=== PATIENT | male | born 1970 | race Hispanic/Latino ===

== ENCOUNTER 2017-12-08 22:56 | Emergency (ER) | payer BC ==
[2017-12-08] MEDS ORDERED: Metoclopramide HCl 10 MG/2 ML VIAL ONE (23:35)
[2017-12-08] MEDS ORDERED: diphenhydrAMINE 25 MG CAP ONE (23:35)
[2017-12-08] MEDS ORDERED: diphenhydrAMINE 12.5 MG/5 ML UDCUP ONE (23:36)
[2017-12-08 23:52] LABS: ALT (SGPT) 38 U/L (8-55); AST (SGOT) 29 U/L (5-34); Albumin 4.5 g/dL (3.5-5.0); Alkaline Phosphatase 88 U/L (40-150); Anion Gap 14 mmol/L (10-20); BUN (Urea Nitrogen) 7 mg/dL (8.9-20.6); Bilirubin, Total 0.6 mg/dL (0.2-1.2); CK (CPK) 140 U/L (30-200); Calc. Creatinine Clearance 0 mL/min (70-130); Calcium 9.5 mg/dL (7.8-10.44); Carbon Dioxide 27 mmol/L (22-29); Chloride 95 mmol/L (98-107); Estimated GFR-MDRD Greater than 90; Globulin 3.2 g/dL (2.4-3.5); Glucose 178 mg/dL (70-105); Protein, Total 7.7 g/dL (6.0-8.3); Sodium 133 mmol/L (136-145)
[2017-12-08 23:55] LABS: Potassium 2.7 mmol/L (3.5-5.1)
[2017-12-08 23:56] LABS: CKMB 1.3 ng/mL (0-6.6); Troponin I Less than 0.010 ng/mL (< 0.028)
[2017-12-09] MEDS ORDERED: diphenhydrAMINE 50 MG/ML VIAL ONE (00:04)
--- NOTE | 2017-12-09 00:04 | RAD ---
PORTABLE AP CHEST X-RAY 12/08/17 HISTORY: Chest pain and dizziness that started two hours ago. COMPARISON: 09/18/16. FINDINGS: The cardiac silhouette is magnified by projection. Pulmonary vasculature are within normal limits. Th e lungs are clear. No interval change from prior study. IMPRESSION: No acute cardiopulmonary process. POS: [facility]
[2017-12-09] MEDS ORDERED: Potassium Chloride 20 MEQ TAB ONE (00:05)
[2017-12-09] MEDS ORDERED: Ketorolac Tromethamine 30 MG/ML VIAL ONE (00:05)
--- NOTE | 2017-12-09 00:06 | CT ---
NONCONTRAST CT HEAD 12/08/17 HISTORY: Lightheadedness with onset two weeks ago. Headache. COMPARISON: 10/08/13. FINDINGS: There is no evidence of a hemorrhage, acute infarction, mass effect or midline shift. The ventricular system is normal in size, shape and position. Again noted is peripheral calcification of the right g lobe with increased density of the right globe. Calvarial structures are intact. The visualized paran trace sinuses and mastoid air cells are clear. There has been no interval change from prior exam. IMPRESSION: Stable CT scan of the head without evidence of an acute intracranial abnormality demonstrated. POS: [facility]
[2017-12-09 00:22] LABS: #Basophils 0.1 thou/uL (0.0-0.2); #Eosinphils 0.8 thou/uL (0.0-0.7); #Lymphocytes 3.9 thou/uL (1.20-3.40); #Monocytes 0.9 thou/uL (0.11-0.59); #Neutrophils 4.5 thou/uL (1.40-6.50); %Eosinophils 8.1 % (0.0-10.0); %Lymphocytes 38.3 % (21.0-51.0); %Monocytes 8.9 % (0.0-10.0); %Neutrophils 43.7 % (42.0-75.0); Hemoglobin 15.3 g/dL (14.0-18.0); Mean Corpuscular HGB CONC 36.2 g/dL (32.0-36.0); Mean Corpuscular Hemoglobin 31.4 pg (27.0-31.0); Mean Corpuscular Volume 86.7 fl (80.0-94.0); Mean Platelet Volume 8.6 fL (7.4-10.4); PLT Morphology Comment Appears Adequate; Platelet Count 294 thou/uL (130-400); RBC Distribution Width 11.3 % (11.5-14.5); RBC Morphology Normal; Red Blood Cell (RBC) Count 4.86 mill/uL (4.70-6.10); White Blood Cell (WBC) Count 10.2 thou/uL (4.8-10.8)
[2017-12-09] MEDS ORDERED: HYDROcodone/Acetaminophen 5/325 mg Tablet ONE (00:50)
== END 2017-12-09 00:57 | disposition home or self-care (01) ==
LOC: ERS 22:56
DX: E11.65 Type 2 diabetes mellitus with hyperglycemia (principal); E87.6 Hypokalemia; I11.0 Hypertensive heart disease with heart failure; I50.9 Heart failure, unspecified; K21.9 Gastro-esophageal reflux disease without esophagitis; E78.5 Hyperlipidemia, unspecified; F41.9 Anxiety disorder, unspecified; F32.9 Major depressive disorder, single episode, unspecified; F17.220 Nicotine dependence, chewing tobacco, uncomplicated; Z79.82 Long term (current) use of aspirin; Z79.84 Long term (current) use of oral hypoglycemic drugs; Z79.899 Other long term (current) drug therapy
CPT/HCPCS: 70450; 71045; 80053; 82550; 82553; 84484; 85025; 93005; 96361; 96374; 96375; J1200; J1885; J2765

== ENCOUNTER 2019-01-16 11:14 | Day surgery (SDC) | payer OTHER ==
[2019-01-15 11:03] VITALS: BMI 28.1
[2019-01-16] MEDS ORDERED: Midazolam HCl 2 mg/2 ml Vial ONE (12:39)
[2019-01-16] MEDS ORDERED: Fentanyl 100 MCG/2 ML VIAL ONE ×5 (12:40→15:07)
[2019-01-16 12:56] LABS: Hemoglobin 14.3 g/dL (14.0-18.0); Mean Corpuscular HGB CONC 34.6 g/dL (32.0-36.0); Mean Corpuscular Hemoglobin 31.2 pg (27.0-31.0); Mean Corpuscular Volume 90.1 fL (78.0-98.0); Mean Platelet Volume 6.4 fL (7.4-10.4); Platelet Count 298 thou/uL (130-400); RBC Distribution Width 11.8 % (11.5-14.5); Red Blood Cell (RBC) Count 4.59 mill/uL (4.70-6.10)
[2019-01-16 13:19] LABS: Anion Gap 16 mmol/L (10-20); BUN (Urea Nitrogen) 11 mg/dL (8.9-20.6); Calc. Creatinine Clearance 124 mL/min (70-130); Calcium 9.9 mg/dL (7.8-10.44); Carbon Dioxide 26 mmol/L (22-29); Chloride 96 mmol/L (98-107); Estimated GFR-MDRD Greater than 90; Glucose 146 mg/dL (70-105); Potassium 3.9 mmol/L (3.5-5.1); Sodium 134 mmol/L (136-145)
--- NOTE | 2019-01-16 14:35 | RAD ---
Intraoperative imaging of the left foot 01/16/2019 COMPARISON: 09/10/2018 History: Open reduction and internal fixation of the fifth metatarsal FINDINGS: There is a screw and plate fixation device associated with the fifth metatarsal shaft. Ther e is anatomic alignment at the postoperative site. Old fractures are suspected involving the distal aspect of the third metatarsal shaft and the base of the third proximal phalanx. IMPRESSION: Postoperative changes as described above.
[2019-01-16] MEDS ORDERED: diphenhydrAMINE 50 MG/ML VIAL ONE (14:55)
[2019-01-16] MEDS ORDERED: Ondansetron HCl/PF 4 MG/2 ML Vial IVP PRN (15:05)
[2019-01-16] MEDS ORDERED: Promethazine HCl 25 MG/ML VIAL IM/IV PRN (15:05)
[2019-01-16] MEDS ORDERED: Bupivacaine HCl 0.5%/Epinephrine 1:200,000/PF 30 ml Vial ONE (15:14)
[2019-01-16] MEDS ORDERED: Ketorolac Tromethamine 30 MG/ML VIAL ONE (15:29)
[2019-01-16] MEDS ORDERED: Dexamethasone 20 MG/5 ML VIAL ONE (15:29)
[2019-01-16] MEDS ORDERED: PROPOFOL 200 MG/20 ML VIAL ONE (15:29)
[2019-01-16] MEDS ORDERED: Ondansetron PF 4 MG/2 ML Vial ONE (15:29)
[2019-01-16] MEDS ORDERED: ePHEDrine 50 MG/ML VIAL ONE (15:29)
[2019-01-16] MEDS ORDERED: Lidocaine 1% PF 5 ML VIAL ONE (15:29)
[2019-01-16] MEDS ORDERED: HYDROmorphone 2 MG/ML VIAL ONE (15:38)
[2019-01-16] MEDS ORDERED: HYDROmorphone 2 MG/ML VIAL SLOW IVP PRN (15:52)
[2019-01-16] MEDS ORDERED: HYDROcodone/Acetaminophen 5/325 mg Tablet ONE (16:36)
--- NOTE | 2019-01-16 21:37 | OP ---
DATE OF PROCEDURE: 01/16/2019 OPERATION PERFORMED: Open reduction and internal fixation of left 5th metatarsal fracture. PREOPERATIVE DIAGNOSIS: Left 5th metatarsal fracture. POSTOPERATIVE DIAGNOSIS: Left 5th metatarsal fracture. COMPLICATIONS: None. ESTIMATED BLOOD LOSS: Minimal. IMPLANTS: Synthes mini fragment plate, 2.4 mm five hole. INDICATIONS: Mr. Collins is a 48-year-old male who fractured the 5th metatarsal. He has failed to heal. He was indicated for open reduction and internal fixation to provide rigidity and allow healing. Risks have been reviewed in detail. He elected to proceed with the operation. DESCRIPTION OF PROCEDURE: Mr. Collins was identified in the preoperative holding area. His correct extremity was marked. He was carried to the operating room. He was positioned supine. General anesthesia was induced. A multidisciplinary time-out was performed. The left lower extremity was prepped and draped in sterile fashion. We began the procedure with evaluation of the foot with x-ray. We identified the fracture site. We made an incision over the lateral foot. We dissected down through the subcutaneous tissues to the fascia over the bone. This was opened. We examined the bone. There was a fibrous nonunion after palpating with an osteotome. There was movement at the fracture, although slight. We cleaned the fracture and applied compression. We then applied a Synthes mini fragment plate. Multiple screws were placed. This locked the plate to the bone. We took x-ray images confirming this. There were no complications. We thoroughly irrigated with copious lavage. We then closed in layers and applied a sterile dressing. The patient was taken to the recovery room in good condition without complication. Job ID: [id number]
== END 2019-01-16 17:30 | disposition home or self-care (01) ==
LOC: SDC 11:14
PROVIDERS: ATTEND Orthopaedic Surgery
PROC: 0QSP04Z Reposition Left Metatarsal with Internal Fixation Device, Open Approach (ICD-10-PCS; principal; 2019-01-16)
DX: S92.355K Nondisplaced fracture of fifth metatarsal bone, left foot, subsequent encounter for fracture with nonunion (principal); K21.9 Gastro-esophageal reflux disease without esophagitis; I42.9 Cardiomyopathy, unspecified; I11.9 Hypertensive heart disease without heart failure; F17.290 Nicotine dependence, other tobacco product, uncomplicated; Z79.82 Long term (current) use of aspirin; Z79.84 Long term (current) use of oral hypoglycemic drugs; Z79.899 Other long term (current) drug therapy; X58.XXXD Exposure to other specified factors, subsequent encounter
CPT/HCPCS: 36415; 76000; 80048; 85027; 93005; 93010; C1713; J0670; J0690; J1100; J1170; J1200; J1885; J2001; J2250; J2405; J2704; J3010; J3490

== ENCOUNTER 2019-03-19 13:28 | Outpatient (CLI) | payer BC ==
--- NOTE | 2019-03-20 20:20 | ULT ---
BILATERAL LOWER EXTREMITY ARTERIAL DOPPLER EXAMINATION: 03/19/19 Bilateral lower extremity Doppler examination was performed on 03/19/19. The right femoral, popliteal, posterior tibial and dorsalis pedis waveforms are triphasic with good peak area in the curve. Ankle- brachial index is 1.25. On the left, femoral waveform is triphasic. Popliteal waveform is biphasic. Posterior tibial and dors elena pedis waveforms are triphasic with good peak area in the curve. Ankle-brachial index is 1.21. ASSESSMENT: Right leg arterial Doppler is completely normal with normal MATILDE. Left leg arterial Doppler shows slig ht diminution in the popliteal waveform although this may be erroneous as the posterior tibial and do rsalis pedis waveforms are completely normal. Ankle-brachial index is normal on the left. If there is concern over true peripheral vascular disease, CT angiogram would be the next evaluation step for his left leg.
== END 2019-03-19 13:29 | disposition home or self-care (01) ==
LOC: ULT 13:28
PROVIDERS: ATTEND Family Medicine
DX: M79.661 Pain in right lower leg (principal); M79.662 Pain in left lower leg
CPT/HCPCS: 93922

== ENCOUNTER 2019-04-16 18:17 | Emergency (ER) | payer BC ==
--- NOTE | 2019-04-16 19:02 | RAD ---
RIGHT ANKLE THREE VIEWS: 04/16/19 HISTORY: Injury, right ankle pain and swelling. FINDINGS/IMPRESSION: Soft tissue swelling is present. No acute fracture or dislocation is identified. The ankle mortise is maintained. POS: [facility]
--- NOTE | 2019-04-16 19:04 | RAD ---
RIGHT FOOT THREE VIEWS: 04/16/19 HISTORY: Injury right ankle and right foot pain. FINDINGS/IMPRESSION: No acute fracture or dislocation is identified. POS: [facility]
[2019-04-16] MEDS ORDERED: traMADol HCl 50 MG TAB ONE (19:19)
== END 2019-04-16 19:35 | disposition home or self-care (01) ==
LOC: ERS 18:17
DX: M25.571 Pain in right ankle and joints of right foot (principal); E11.9 Type 2 diabetes mellitus without complications; K21.9 Gastro-esophageal reflux disease without esophagitis; E78.5 Hyperlipidemia, unspecified; I11.0 Hypertensive heart disease with heart failure; I50.9 Heart failure, unspecified; Z79.84 Long term (current) use of oral hypoglycemic drugs; Z79.82 Long term (current) use of aspirin; Z79.899 Other long term (current) drug therapy

== ENCOUNTER 2020-06-28 14:35 | Outpatient (CLI) | payer OTHER ==
--- NOTE | 2020-06-28 15:22 | RAD ---
XR Chest Pa Lat STANDARD HISTORY: Disability exam. History of CHF COMPARISON: 03/06/2019 FINDINGS: The heart size is normal. The lungs are well expanded without focal areas of consolidation, pneumothorax or pleural effusions. IMPRESSION: No radiographic evidence of acute cardiopulmonary process.
--- NOTE | 2020-06-28 15:32 | RAD ---
2 views of the left foot: 06/28/2020 COMPARISON: 05/12/2019 HISTORY: Pain, prior foot surgery FINDINGS: There is minimal enthesophyte formation at the origin of plantar aponeurosis and the insert ion of the Achilles tendon. There is degenerative change involving the first metatarsal-phalangeal joint. There is postoperative hardware associated with the mid/distal fifth metatarsal shaft, not significan tly changed when compared to the 05/12/2019 exam. No acute fracture or dislocation is evident. There is an old fracture involving the distal aspect of the third metatarsal and involving the base of the third proximal phalanx medially. IMPRESSION: No acute fracture or dislocation. Evidence of prior open reduction and internal fixation of the fifth metatarsal.
== END 2020-06-28 14:36 | disposition home or self-care (01) ==
LOC: BICRAD 14:35
PROVIDERS: ATTEND Internal Medicine
DX: Z02.71 Encounter for disability determination (principal); Z98.890 Other specified postprocedural states
CPT/HCPCS: 71046

== ENCOUNTER 2020-11-09 20:23 | Observation (INO) | payer SELFPAY ==
[2020-11-09 21:06] LABS: #Basophils 0.2 thou/uL (0.0-0.2); #Eosinphils 0.8 thou/uL (0.0-0.7); #Lymphocytes 3.1 thou/uL (1.20-3.40); #Neutrophils 5.2 thou/uL (1.40-6.50); %Basophils 1.5 % (0.0-1.0); %Eosinophils 7.4 % (0.0-10.0); %Lymphocytes 30.2 % (21.0-51.0); %Monocytes 10.1 % (0.0-10.0); %Neutrophils 50.8 % (42.0-75.0); Hemoglobin 15.8 g/dL (14.0-18.0); Mean Corpuscular HGB CONC 35.4 g/dL (32.0-36.0); Mean Corpuscular Hemoglobin 31.9 pg (27.0-31.0); Mean Corpuscular Volume 90.1 fL (78.0-98.0); Mean Platelet Volume 6.8 fL (7.4-10.4); Platelet Count 264 thou/uL (130-400); RBC Distribution Width 12.1 % (11.5-14.5); Red Blood Cell (RBC) Count 4.95 mill/uL (4.70-6.10); White Blood Cell (WBC) Count 10.3 thou/uL (4.8-10.8)
--- NOTE | 2020-11-09 21:19 | RAD ---
EXAM: CHEST ONE VIEW HISTORY: Syncope. High. COMPARISON: 12/08/2017 FINDINGS: Cardiac silhouette is magnified by projection but stable in size. The pulmonary vasculature is within normal limits. The lungs are clear. No interval change when compared to prior study. IMPRESSION: No acute cardiopulmonary process.
--- NOTE | 2020-11-09 21:22 | RAD ---
Exam: XR Shoulder Lt 3 View STANDARD HISTORY: Left shoulder pain. COMPARISON: None FINDINGS: Mild left acromioclavicular joint osteoarthritis is present. No fracture, dislocation, or other osseous abnormality seen involving the left shoulder. IMPRESSION: 1. No acute osseous abnormalities. 2. Left acromioclavicular joint osteoarthritis.
[2020-11-09 21:26] LABS: Acetaminophen Less than 6.0 mcg/mL (10.0-30.0); Alcohol 123 mg/dL (Less than 10); Salicylate Less than 8.0 mg/dL (15.0-30.0)
[2020-11-09 21:32] LABS: ALT (SGPT) 27 U/L (8-55); AST (SGOT) 27 U/L (5-34); Albumin 4.2 g/dL (3.5-5.0); Alkaline Phosphatase 100 U/L (40-110); Anion Gap 17 mmol/L (10-20); BUN (Urea Nitrogen) 7 mg/dL (8.9-20.6); Bilirubin, Total 0.6 mg/dL (0.2-1.2); Calc. Creatinine Clearance 0 mL/min (70-130); Calcium 9.1 mg/dL (7.8-10.44); Carbon Dioxide 25 mmol/L (22-29); Chloride 92 mmol/L (98-107); Globulin 3.2 g/dL (2.4-3.5); Glucose 243 mg/dL (70-105); Potassium 3.3 mmol/L (3.5-5.1); Protein, Total 7.4 g/dL (6.0-8.3); Sodium 131 mmol/L (136-145)
[2020-11-10] MEDS ORDERED: Ondansetron ODT 4 MG TAB PO PRN (00:07)
[2020-11-10] MEDS ORDERED: Acetaminophen 325 MG TAB PO PRN (00:07)
[2020-11-10] MEDS ORDERED: HYDROcodone/Acetaminophen 5/325 mg Tablet PO PRN (00:07)
[2020-11-10] MEDS ORDERED: Ondansetron PF 4 MG/2 ML Vial IVP PRN (00:07)
[2020-11-10] MEDS ORDERED: diphenhydrAMINE 50 MG/ML VIAL IVP PRN (00:08)
[2020-11-10] MEDS ORDERED: Potassium Chloride 20 MEQ TAB PO SCH (01:00)
--- NOTE | 2020-11-10 07:20 | PDOC.HHP ---
Hospitalist HPI Near Syncope History of Present Illness: This is a 50-year-old male patient with a history of hypertension, GERD, type 2 diabetes and heart failure who presents today after a fall. patient notes that he was in his kitchen when suddenly felt lightheaded and fell. His daughter was witnessed. Apparently he did not lose consciousness. At the time the also noted hives generalized over his body with swelling of his tongue. There was no associated wheeze or shortness of breath. Apparently he has had a number of hives for the past month which have resolved spontaneously. He also is a frequent drinker and drinks alcohol every day. EMS was activated and he was flown to the ED for further evaluation. He received Benadryl and Solu-Medrol in route. Most of his lesions had resolved by the time I came in to assess him. At presentation his blood pressure was 182/121, pulse 77, respiratory rate 18, temperature 97.7, oxygen saturation 98 on room air. Temperature was 97.7. His labs showed hyponatremia of 131, potassium 3.3, glucose 243. Alcohol level was 126. CBC was generally unremarkable. He complained of pain in his right shoulder however x-ray showed no acute osseous process. Chest x-ray also showed no acute cardiopulmonary process. He did not receive any medications while he was here. Allergies/Adverse Reactions: Allergy/AdvReac Type Severity Reaction Status Date / Time No Known Drug Allergies Allergy Verified 11/10/20 07:17 Home Medications: Medication Instructions Recorded Confirmed Type Carvedilol [Coreg] 12.5 mg PO BID 11/10/20 11/10/20 History EPINEPHrine [EpiPen 2-Alessio] 0.3 mg IM ONE PRN #1 pen 11/10/20 Rx Folic Acid 1 mg PO DAILY #30 tablet 11/10/20 Rx Thiamine 100 mg PO DAILY #30 tab 11/10/20 Rx metFORMIN HCl [Metformin HCl] 1,000 mg PO BID 11/10/20 11/10/20 History Past History: PMHx:hypertension, GERD, type 2 diabetes and heart failure PSHx:Eye surgery, cholecystectomy FHx:None of significance Social:Drinks alcohol daily and deeps tobacco. no illicit drug use. Hospitalist SHANNAN ROS Constitutional: reports: chills, malaise. denies: fever, sweats, weakness Respiratory: reports: hemoptysis, SOB with excertion. denies: cough, shortness of breath Cardiovascular: reports: palpitations, orthopnea. denies: chest pain Genitourinary: denies: dysuria, frequency, incontinence, hematuria Skin: reports: lesions (wheals) Neurological: reports: weakness. 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) Musculoskeletal: normal tone, normal strength Psychiatric: normal affect, A&O x 3 Hospitalist Results Result Diagrams: 11/10/20 14:24 11/10/20 14:24 Lab results: Laboratory Last Values WBC 10.3 thou/uL (4.8-10.8) 11/09/20 20:58 RBC 4.95 mill/uL (4.70-6.10) 11/09/20 20:58 Hgb 15.8 g/dL (14.0-18.0) 11/09/20 20:58 Hct 44.6 % (42.0-52.0) 11/09/20 20:58 MCV 90.1 fL (78.0-98.0) 11/09/20 20:58 MCH 31.9 pg (27.0-31.0) H 11/09/20 20:58 MCHC 35.4 g/dL (32.0-36.0) 11/09/20 20:58 RDW 12.1 % (11.5-14.5) 11/09/20 20:58 Plt Count 264 thou/uL (130-400) 11/09/20 20:58 MPV 6.8 fL (7.4-10.4) L 11/09/20 20:58 Neutrophils % 50.8 % (42.0-75.0) 11/09/20 20:58 Lymphocytes % 30.2 % (21.0-51.0) 11/09/20 20:58 Monocytes % 10.1 % (0.0-10.0) H 11/09/20 20:58 Eosinophils % 7.4 % (0.0-10.0) 11/09/20 20:58 Basophils % 1.5 % (0.0-1.0) H 11/09/20 20:58 Neutrophils # 5.2 thou/uL (1.40-6.50) 11/09/20 20:58 Lymphocytes # 3.1 thou/uL (1.20-3.40) 11/09/20 20:58 Monocytes # 1.0 thou/uL (0.11-0.59) H 11/09/20 20:58 Eosinophils # 0.8 thou/uL (0.0-0.7) H 11/09/20 20:58 Basophils # 0.2 thou/uL (0.0-0.2) 11/09/20 20:58 Sodium 131 mmol/L (136-145) L 11/09/20 20:58 Potassium 3.3 mmol/L (3.5-5.1) L 11/09/20 20:58 Chloride 92 mmol/L (98-107) L 11/09/20 20:58 Carbon Dioxide 25 mmol/L (22-29) 11/09/20 20:58 Anion Gap 17 mmol/L (10-20) 11/09/20 20:58 BUN 7 mg/dL (8.9-20.6) L 11/09/20 20:58 Creatinine 0.78 mg/dL (0.7-1.3) 11/09/20 20:58 Estimated GFR (MDRD) Greater than 90 11/09/20 20:58 Glucose 243 mg/dL (70-105) H 11/09/20 20:58 Calcium 9.1 mg/dL (7.8-10.44) 11/09/20 20:58 Total Bilirubin 0.6 mg/dL (0.2-1.2) 11/09/20 20:58 AST 27 U/L (5-34) 11/09/20 20:58 ALT 27 U/L (8-55) 11/09/20 20:58 Alkaline Phosphatase 100 U/L (40-110) 11/09/20 20:58 Troponin I 0.011 ng/mL (< 0.028) 11/09/20 20:58 Serum Total Protein 7.4 g/dL (6.0-8.3) 11/09/20 20:58 Albumin 4.2 g/dL (3.5-5.0) 11/09/20 20:58 Globulin 3.2 g/dL (2.4-3.5) 11/09/20 20:58 Albumin/Globulin Ratio 1.3 g/dL (1.2-2.2) 11/09/20 20:58 Salicylates Less than 8.0 mg/dL (15.0-30.0) L 11/09/20 20:58 Acetaminophen Less than 6.0 mcg/mL (10.0-30.0) L 11/09/20 20:58 Plasma Alcohol 123 mg/dL (Less than 10) H 11/09/20 20:58 Hospitalist H&P A/P Plan: This is a 50-year-old male patient with a history of diabetes mellitus hypertension and chronic alcohol abuse presents him with an episode of near syncope hives and swelling of his tongue. -Near syncope Unclear etiologypossibly alcohol-related however may be unknown allergic reacti on We will check orthostatics Monitor on telemetry Check echocardiogram in a.m. -Hives/angioedema Given the swelling of his tongue and hives this may be a combination of hives and angioedema Unclear etiology however this has been recurrent Received Solu-Medrol and Benadryl if resolution We will monitor for now He may have to follow-up with an track mechanic. -Hyponatremia Sodium 131 We will monitor -Hypokalemia Potassium 3.3 Replenish Check magnesium -Alcoholism/Alcohol intoxication alcohol levels high monitor for withdrawal VT prophylaxisLovenox CODE STATUSfull code
[2020-11-10 07:29] VITALS: BMI 27.3
[2020-11-10] MEDS ORDERED: Enoxaparin Sodium 40 MG/0.4 ML SYRINGE SC SCH (09:00)
[2020-11-10] MEDS: Sodium Chloride 0.9% 1,000 ML IV SCH ×2 (09:16→14:02)
[2020-11-10] MEDS ORDERED: Dextrose 5% in Water 1,000 ML IV PRN (10:35)
[2020-11-10] MEDS ORDERED: Dextrose 50% Abboject 50 ML SYRINGE SLOW IVP PRN (10:35)
[2020-11-10] MEDS ORDERED: Carvedilol 6.25 MG TAB PO SCH ×2 (10:45→17:00)
[2020-11-10] MEDS: HumaLOG 300 UNITS/3 ML VIAL SC PRN ×2 (13:40→17:31)
[2020-11-10 14:54] LABS: Hemoglobin 15.2 g/dL (14.0-18.0); Mean Corpuscular HGB CONC 35.6 g/dL (32.0-36.0); Mean Corpuscular Hemoglobin 32.7 pg (27.0-31.0); Mean Corpuscular Volume 91.8 fL (78.0-98.0); Mean Platelet Volume 7.2 fL (7.4-10.4); Platelet Count 212 thou/uL (130-400); Red Blood Cell (RBC) Count 4.64 mill/uL (4.70-6.10); White Blood Cell (WBC) Count 6.9 thou/uL (4.8-10.8)
[2020-11-10 15:16] LABS: SARS-CoV-2 PCR by NAA DETECTED (NotDetected)
[2020-11-10 15:36] LABS: Anisocytosis SLIGHT = 6-15 cells (100X) (0-5/hpf); Band 7 % (5-11); Eosinophils 1 % (0-10); Lymphocytes 20 % (21-51); MDiff Complete? YES; Monocytes 12 % (0-10); Neutrophil 55 % (42-75); Platelet Morphology Comment Appears Adequate; Polychromasia SLIGHT = 2-3 cells (100X) (0-2/hpf); Reactive Lymphocytes 5 % (0-10)
[2020-11-10 15:37] LABS: Anion Gap 11 mmol/L (10-20); BUN (Urea Nitrogen) 16 mg/dL (8.9-20.6); Calc. Creatinine Clearance 84 mL/min (70-130); Calcium 8.9 mg/dL (7.8-10.44); Carbon Dioxide 27 mmol/L (22-29); Chloride 98 mmol/L (98-107); Glucose 394 mg/dL (70-105); Magnesium 1.8 mg/dL (1.6-2.6); Potassium 3.6 mmol/L (3.5-5.1); Sodium 132 mmol/L (136-145)
[2020-11-10 16:24] VITALS: BP 167/98; TEMP 99.1
--- NOTE | 2020-11-10 17:17 | PDOC.DS.DS ---
Provider Date of Admission: 11/09/20 22:18 Date of Discharge: 11/10/20 Admitting Provider: Osmani Darnell MD Primary Care Physician: Josselin Crane DO Course Hospital Course: Discharge diagnosis Near syncope Anaphylactic reaction COVID-19 Alcohol abuse Hospital course Patient is 50-year-old male with PMH of HTN, DM type II, chronic systolic CHF, GERD, and alcohol abuse, who presents to the ED after he felt lightheaded and fell. No loss of consciousness but did have SOB prior to fall. Patient also reports recurrent hives for the past 2 months. He states the hives usually last for about a week and resolve spontaneously. However on day of presentation, he also noted mouth/tongue swelling, shortness of breath, in addition to his hives. He denies any new medication, or using new products. He previously was on lisinopril, but has not used it for the past 8 months due to cost. He received Solu-Medrol and Benadryl by EMS prior to arrival to the ED. Most of his lesions were resolved on admission. Initial alcohol level elevated. COVID- 19 test positive but he required no oxygen supplement at rest or with excersion. Final echo results pending, but per report normal EF. No Tele events overnight. Symptoms completely resolved on discharge. Patient's near syncope is likely due to alcohol use or related to hypoxia from his anaphylactic reaction from unknown agent. EpiPen ordered on discharge. Patient counseled on alcohol cessation. Patient also informed to follow with his PCP for allergy referral. Lab Results: 11/10/20 14:24 11/10/20 14:24 Abnormal Lab Results - Last 48 hrs 11/09/20 20:58: Sodium 131 L, Potassium 3.3 L, Chloride 92 L, BUN 7 L 11/09/20 20:58: Salicylates Less than 8.0 L, Acetaminophen Less than 6.0 L, Plasma Alcohol 123 H 11/09/20 20:58: MCH 31.9 H, MPV 6.8 L, Monocytes % 10.1 H, Basophils % 1.5 H, Monocytes # 1.0 H, Eosinophils # 0.8 H 11/10/20 02:15: SARS-CoV-2 RNA ([facility]IL[facility]) DETECTED A* 11/10/20 14:24: Sodium 132 L 11/10/20 14:24: RBC 4.64 L, MCH 32.7 H, MPV 7.2 L, Lymphocytes % (Manual) 20 L, Monocytes % (Manual) 12 H Vitals: Vital Signs (12 hours) Temp Pulse Resp BP BP BP Pulse Ox 11/10/20 16:00 99.1 F 85 12 167/98 H 96 11/10/20 11:51 98.5 F 80 20 179/94 H 94 L 11/10/20 09:20 167/101 H 175/109 H 166/96 H 11/10/20 08:00 98.0 F 80 14 157/93 H 96 Weight Weight 174 lb 6.56 oz Physical Exam: The patient was seen and examined on the day of discharge. General Appearance: NAD, awake alert Eye: PERRL ENT: moist mucosa ENT - other findings: no tongue or lip swelling Neck: no JVD Respiratory: CTAB, no wheezes, no tachypnea Cardiovascular: RRR Gastrointestinal: soft, non-tender, non-distended, normal bowel sounds Extremities: no edema Skin: no rashes Musculoskeletal: normal strength PSYCH: normal affect Plan Prescriptions: EPINEPHrine [EpiPen 2-Alessio] 0.3 mg IM ONE PRN #1 pen PRN Reason: ANAPHYLAXIS Folic Acid 1 mg PO DAILY #30 tablet Thiamine 100 mg PO DAILY #30 tab Home Medications: Medication Instructions Recorded Confirmed Type Carvedilol [Coreg] 12.5 mg PO BID 11/10/20 11/10/20 History EPINEPHrine [EpiPen 2-Alessio] 0.3 mg IM ONE PRN #1 pen 11/10/20 Rx Folic Acid 1 mg PO DAILY #30 tablet 11/10/20 Rx Thiamine 100 mg PO DAILY #30 tab 11/10/20 Rx metFORMIN HCl [Metformin HCl] 1,000 mg PO BID 11/10/20 11/10/20 History Allergies: No Known Drug Allergies Allergy (Verified 11/10/20 07:17) Discharge Instructions:: Avoid alcohol drink Activity:: Activity as Tolerated Nourishment:: Diabetic Diet, Heart Healthy Diet Referrals: Josselin Crane DO [Primary Care Provider] - 3 Days Disposition: HOME Quality CORE MEASURES:: N/A
--- NOTE | 2020-11-13 22:29 | EKG ---
Test Reason : SYNCOPE Blood Pressure : / mmHG Vent. Rate : 076 BPM Atrial Rate : 076 BPM P-R Int : 126 ms QRS Dur : 086 ms QT Int : 414 ms P-R-T Axes : 032 -17 -15 degrees QTc Int : 465 ms Normal sinus rhythm Possible Left atrial enlargement Left ventricular hypertrophy Abnormal ECG Confirmed by RALPH DOVER DO ([id number]), editor city [place]A ANN ([id number]) on 11/13/2020 10:29:02 PM Referred By: JAZZMINE Confirmed By:RALPH DOVER DO
== END 2020-11-10 19:59 | disposition home or self-care (01) ==
LOC: ERS 20:23 → ERHOLD 22:18 → 2SW 11-10 01:48
PROVIDERS: ADMIT Student in an Organized Health Care Education/Training Program; ATTEND Internal Medicine
DX: U07.1 COVID-19 (principal); R55 Syncope and collapse; T78.2XXA Anaphylactic shock, unspecified, initial encounter; T78.3XXA Angioneurotic edema, initial encounter; E87.1 Hypo-osmolality and hyponatremia; E87.6 Hypokalemia; F10.129 Alcohol abuse with intoxication, unspecified; I11.0 Hypertensive heart disease with heart failure; I50.22 Chronic systolic (congestive) heart failure; E11.9 Type 2 diabetes mellitus without complications; K21.9 Gastro-esophageal reflux disease without esophagitis; F17.220 Nicotine dependence, chewing tobacco, uncomplicated; F32.9 Major depressive disorder, single episode, unspecified; Z79.82 Long term (current) use of aspirin; Z79.84 Long term (current) use of oral hypoglycemic drugs; Z79.899 Other long term (current) drug therapy; W19.XXXA Unspecified fall, initial encounter
CPT/HCPCS: 36415; 36416; 71045; 80048; 80053; 80307; 83735; 84484; 85025; 87635; 93005; 93306; 96372; G0378; J1650; J1815; U0003; U0005

== ENCOUNTER 2020-11-14 19:53 | Emergency (ER) | payer SELFPAY ==
[2020-11-14] MEDS ORDERED: diphenhydrAMINE 50 MG/ML VIAL ONE (20:31)
[2020-11-14] MEDS ORDERED: methylPREDNISolone Sod Succ/PF 125 MG/2 ML VIAL ONE (20:31)
== END 2020-11-14 20:45 | disposition home or self-care (01) ==
LOC: ERS 19:53
DX: T78.40XA Allergy, unspecified, initial encounter (principal); U07.1 COVID-19; K21.9 Gastro-esophageal reflux disease without esophagitis; E11.9 Type 2 diabetes mellitus without complications; E78.5 Hyperlipidemia, unspecified; E78.00 Pure hypercholesterolemia, unspecified; I11.0 Hypertensive heart disease with heart failure; I50.9 Heart failure, unspecified; F17.220 Nicotine dependence, chewing tobacco, uncomplicated; F17.290 Nicotine dependence, other tobacco product, uncomplicated
CPT/HCPCS: 96374; 96375; J1200; J2930

== ENCOUNTER 2021-04-27 20:28 | Emergency (ER) | payer OTHER, SELFPAY ==
[2021-04-27] MEDS ORDERED: Ketorolac Tromethamine 30 MG/ML VIAL ONE (22:58)
== END 2021-04-27 23:17 | disposition home or self-care (01) ==
LOC: ERS 20:28
DX: S70.02XA Contusion of left hip, initial encounter (principal); S40.012A Contusion of left shoulder, initial encounter; I11.0 Hypertensive heart disease with heart failure; I50.9 Heart failure, unspecified; E11.9 Type 2 diabetes mellitus without complications; K21.9 Gastro-esophageal reflux disease without esophagitis; E78.5 Hyperlipidemia, unspecified; E78.00 Pure hypercholesterolemia, unspecified; Z79.899 Other long term (current) drug therapy; W22.8XXA Striking against or struck by other objects, initial encounter
CPT/HCPCS: 96372; J1885

== ENCOUNTER 2022-03-31 17:47 | Emergency (ER) | payer MEDICARE ==
[2022-03-31 18:56] LABS: #Basophils 0.1 thou/uL (0.0-0.2); #Eosinphils 0.5 thou/uL (0.0-0.7); #Lymphocytes 1.8 thou/uL (1.20-3.40); #Monocytes 0.9 thou/uL (0.11-0.59); #Neutrophils 5.6 thou/uL (1.40-6.50); %Basophils 0.8 % (0.0-1.0); %Lymphocytes 20.2 % (21.0-51.0); %Neutrophils 63.1 % (42.0-75.0); Hemoglobin 13.9 g/dL (14.0-18.0); Mean Corpuscular HGB CONC 34.9 g/dL (32.0-36.0); Mean Corpuscular Hemoglobin 32.9 pg (27.0-31.0); Mean Corpuscular Volume 94.4 fL (78.0-98.0); Mean Platelet Volume 7.3 fL (7.4-10.4); Platelet Count 197 thou/uL (130-400); RBC Distribution Width 12.1 % (11.5-14.5); Red Blood Cell (RBC) Count 4.22 mill/uL (4.70-6.10); White Blood Cell (WBC) Count 8.9 thou/uL (4.8-10.8)
[2022-03-31 19:14] LABS: ALT (SGPT) 30 U/L (8-55); AST (SGOT) 20 U/L (5-34); Albumin 3.7 g/dL (3.5-5.0); Alkaline Phosphatase 105 U/L (40-110); Anion Gap 16 mmol/L (10-20); BUN (Urea Nitrogen) 11 mg/dL (8.9-20.6); Bilirubin, Total 0.8 mg/dL (0.2-1.2); Calc. Creatinine Clearance 0 mL/min (70-130); Carbon Dioxide 24 mmol/L (22-29); Chloride 97 mmol/L (98-107); Globulin 3.4 g/dL (2.4-3.5); Glucose 163 mg/dL (70-105); Lipase 19 U/L (8-78); Potassium 3.9 mmol/L (3.5-5.1); Protein, Total 7.1 g/dL (6.0-8.3); Sodium 133 mmol/L (136-145)
[2022-03-31 20:00] LABS: Bacteria/HPF None Seen HPF (None Seen); Bilirubin Negative (Negative); Blood, Urine 1+ (Negative); Clarity Clear (Clear); Glucose, Urine (Dipstick) Normal (Negative); Ketone, Urine Negative (Negative); Leukocyte Negative Leu/uL (Negative); Nitrite Negative (Negative); Protein, Urine (Dipstick) Negative (Neg-Trace); Specific Gravity, Urine 1.004 (1.002-1.036); Squamous Epithelial None Seen HPF (0-3); Urobilinogen Normal mg/dL (Less than 2); WBC/HPF 0-3 HPF (0-3); pH, Urine 6.5 (5.0-9.0)
[2022-03-31] MEDS ORDERED: Ketorolac Tromethamine 30 MG/ML VIAL ONE (21:44)
[2022-03-31] MEDS ORDERED: Morphine 4 MG/ML VIAL ONE (22:24)
== END 2022-04-01 00:06 | disposition home or self-care (01) ==
LOC: ERS 17:47
DX: R31.9 Hematuria, unspecified (principal); M54.9 Dorsalgia, unspecified; I11.0 Hypertensive heart disease with heart failure; I50.9 Heart failure, unspecified; E11.9 Type 2 diabetes mellitus without complications; K21.9 Gastro-esophageal reflux disease without esophagitis; E78.5 Hyperlipidemia, unspecified; E78.00 Pure hypercholesterolemia, unspecified; F17.220 Nicotine dependence, chewing tobacco, uncomplicated; H54.40 Blindness, one eye, unspecified eye; Z79.899 Other long term (current) drug therapy
CPT/HCPCS: 36415; 80053; 81003; 81015; 83690; 85025; 96374; 96375; J1885; J2270

== ENCOUNTER 2022-05-16 07:53 | Outpatient (CLI) | payer MEDICARE | END 2022-05-16 07:54 | disposition home or self-care (01) | LOC: TBSIIMAG 07:53 | PROVIDERS: ATTEND Orthopaedic Surgery | DX: M54.16 Radiculopathy, lumbar region (principal); M51.37 Other intervertebral disc degeneration, lumbosacral region; M48.07 Spinal stenosis, lumbosacral region | CPT/HCPCS: 72148 ==

== ENCOUNTER 2023-09-11 18:23 | Inpatient (IN) | payer MEDICARE ==
[2023-09-11] MEDS ORDERED: Ipratropium/Albuterol 3 ML NEB ONE ×3 (20:07→22:07)
[2023-09-11 21:02] LABS: ALT (SGPT) 18 U/L (8-55); AST (SGOT) 20 U/L (5-34); Albumin 4.3 g/dL (3.5-5.0); Alkaline Phosphatase 114 U/L (40-110); Anion Gap 16 mmol/L (10-20); BUN (Urea Nitrogen) 6 mg/dL (8.4-25.7); Bilirubin, Total 0.7 mg/dL (0.2-1.2); Calc. Creatinine Clearance 0 mL/min (70-130); Calcium 9.9 mg/dL (7.8-10.44); Carbon Dioxide 28 mmol/L (22-29); Chloride 80 mmol/L (98-107); Estimated GFR 109; Globulin 4.1 g/dL (2.4-3.5); Glucose 82 mg/dL (70-105); Magnesium 1.4 mg/dL (1.6-2.6); Protein, Total 8.4 g/dL (6.0-8.3); Sodium 121 mmol/L (136-145)
[2023-09-11 21:06] LABS: Troponin I Less than 0.010 ng/mL (< 0.028)
[2023-09-11] MEDS ORDERED: Potassium Chloride 20 MEQ TAB ONE (21:52)
[2023-09-11] MEDS ORDERED: methylPREDNISolone Sod Succ/PF 125 MG/2 ML VIAL ONE (22:13)
[2023-09-11] MEDS ORDERED: Ondansetron ODT 4 MG TAB PO PRN (22:47)
[2023-09-11] MEDS ORDERED: Ipratropium/Albuterol 3 ML NEB NEB PRN (22:47)
[2023-09-11] MEDS ORDERED: Ondansetron PF 4 MG/2 ML Vial IVP PRN (22:47)
[2023-09-11] MEDS ORDERED: Magnesium 2 GM/50 ML(in water) 2 GM in Premix 1 BAG IVPB SCH (23:00)
[2023-09-11 23:34] LABS: Phosphorus 2.4 mg/dL (2.3-4.7)
[2023-09-11 23:35] LABS: Anion Gap 14 mmol/L (10-20); BUN (Urea Nitrogen) 6 mg/dL (8.4-25.7); Calc. Creatinine Clearance 0 mL/min (70-130); Calcium 9.2 mg/dL (7.8-10.44); Carbon Dioxide 26 mmol/L (22-29); Chloride 86 mmol/L (98-107); Estimated GFR 109; Glucose 98 mg/dL (70-105); Potassium 3.2 mmol/L (3.5-5.1); Sodium 123 mmol/L (136-145)
[2023-09-11] MEDS ORDERED: Dextrose 50% Abboject 50 ML SYRINGE SLOW IVP PRN (23:35)
[2023-09-11] MEDS ORDERED: Glucagon 1 MG/ML KIT IM PRN (23:35)
[2023-09-11] MEDS ORDERED: Dextrose 5% in Water 1,000 ML IV PRN (23:35)
[2023-09-12] MEDS ORDERED: cefTRIAXone (ROCEPHIN) 2 GM VIAL ONE (00:29)
[2023-09-12] MEDS ORDERED: Sodium Chloride 0.9% 100 ML ONE (00:30)
[2023-09-12] MEDS ORDERED: Azithromycin 500 MG VIAL ONE (00:30)
[2023-09-12 01:18] LABS: Troponin I Less than 0.010 ng/mL (< 0.028)
[2023-09-12 02:22] VITALS: BMI 29.0
[2023-09-12] MEDS: Ipratropium/Albuterol 3 ML NEB NEB SCH ×2 (02:50→07:28)
[2023-09-12] MEDS: Sodium Chloride 0.9% 1,000 ML IV SCH ×4 (04:22→16:35)
[2023-09-12] MEDS: Azithromycin 500 MG in Sodium Chloride 0.9% 250 ML 250 ML IVPB SCH (04:32)
[2023-09-12] MEDS: cefTRIAXone\\ROCEPHIN 2 GM in Sodium Chloride 0.9% 100 ML IVPB SCH (04:35)
[2023-09-12 05:21] LABS: #Monocytes 0.2 thou/uL (0.11-0.59); #Neutrophils 12.3 thou/uL (1.40-6.50); %Basophils 0.3 % (0.0-1.0); %Eosinophils 0.1 % (0.0-10.0); %Lymphocytes 7.6 % (21.0-51.0); %Monocytes 1.7 % (0.0-10.0); %Neutrophils 88.2 % (42.0-75.0); Hematocrit 34.3 % (42.0-52.0); Hemoglobin 12.6 g/dL (14.0-18.0); Mean Corpuscular HGB CONC 36.7 g/dL (32.0-36.0); Mean Corpuscular Volume 84.3 fl (78.0-98.0); Mean Platelet Volume 8.5 fL (7.4-10.4); Platelet Count 287 10x3/uL (130-400); RBC Distribution Width 11.5 % (11.5-14.5); Red Blood Cell (RBC) Count 4.07 mill/uL (4.70-6.10); White Blood Cell (WBC) Count 13.9 10x3/uL (4.8-10.8)
[2023-09-12 05:49] LABS: Anion Gap 15 mmol/L (10-20); BUN (Urea Nitrogen) 8 mg/dL (8.4-25.7); Calc. Creatinine Clearance 117 mL/min (70-130); Calcium 9.3 mg/dL (7.8-10.44); Carbon Dioxide 24 mmol/L (22-29); Chloride 90 mmol/L (98-107); Estimated GFR 104; Glucose 367 mg/dL (70-105); Magnesium 1.6 mg/dL (1.6-2.6); Potassium 3.9 mmol/L (3.5-5.1); Sodium 125 mmol/L (136-145)
[2023-09-12 05:51] LABS: Troponin I Less than 0.010 ng/mL (< 0.028)
[2023-09-12] MEDS ORDERED: Ipratropium/Albuterol Sulfate 4 GM AER IH PRN (07:25)
[2023-09-12] MEDS: Famotidine/PF 20 mg/2ml Vial SLOW IVP SCH ×2 (08:07→22:07)
[2023-09-12] MEDS: Amlodipine 5 MG TAB PO SCH (08:07)
[2023-09-12] MEDS: Aspirin Chewable 81 MG TAB PO SCH (08:07)
[2023-09-12] MEDS: Carvedilol 6.25 MG TAB PO SCH ×2 (08:07→22:08)
[2023-09-12] MEDS: predniSONE 20 MG TAB PO SCH (08:07)
[2023-09-12] MEDS: Sertraline 100 MG TAB PO SCH (08:07)
[2023-09-12 08:44] LABS: SARS-CoV-2 NAA Rapid Test Not Detected (NotDetected)
[2023-09-12] MEDS ORDERED: Acetaminophen 500 MG TAB PO SCH (08:45)
[2023-09-12] MEDS: Benzonatate 100 MG CAP PO SCH ×3 (09:13→22:06)
[2023-09-12] MEDS: guaiFENesin/DM ER PO SCH ×2 (09:13→22:07)
[2023-09-12] MEDS: Ipratropium/Albuterol Sulfate 4 GM AER IH SCH ×4 (10:54→21:33)
[2023-09-12 11:43] LABS: Anion Gap 13 mmol/L (10-20); BUN (Urea Nitrogen) 9 mg/dL (8.4-25.7); Calc. Creatinine Clearance 127 mL/min (70-130); Carbon Dioxide 25 mmol/L (22-29); Chloride 92 mmol/L (98-107); Estimated GFR 106; Glucose 271 mg/dL (70-105); Sodium 126 mmol/L (136-145)
[2023-09-12] MEDS: Insulin Regular 300 UNITS/3 ML VIAL SC PRN ×3 (12:38→22:08)
[2023-09-12] MEDS ORDERED: Magnesium 2 GM/50 ML(in water) 2 GM in Premix 1 BAG IVPB SCH (16:15)
[2023-09-12] MEDS: glipiZIDE 10 MG TAB PO SCH (16:34)
[2023-09-12] MEDS ORDERED: glipiZIDE 10 MG TAB PO SCH (17:00)
[2023-09-12 18:20] LABS: Anion Gap 14 mmol/L (10-20); BUN (Urea Nitrogen) 12 mg/dL (8.4-25.7); Calc. Creatinine Clearance 106 mL/min (70-130); Calcium 9.2 mg/dL (7.8-10.44); Carbon Dioxide 24 mmol/L (22-29); Chloride 95 mmol/L (98-107); Estimated GFR 93; Glucose 210 mg/dL (70-105); Potassium 3.5 mmol/L (3.5-5.1); Sodium 129 mmol/L (136-145)
[2023-09-12] MEDS: HYDROcodone/Chlorphen Polis 5 ML UDCUP PO PRN (18:31)
[2023-09-12] MEDS ORDERED: Non-Formulary Item 1 EACH (Metformin Hcl [Metformin Hcl] 1,000 MG Tablet) PO SCH (21:00)
[2023-09-12] MEDS: Rosuvastatin 20 MG TAB PO SCH (22:07)
[2023-09-12] MEDS: metFORMIN 500 MG TAB PO SCH (22:07)
[2023-09-13] MEDS: Azithromycin 500 MG in Sodium Chloride 0.9% 250 ML 250 ML IVPB SCH ×2 (00:14→23:05)
[2023-09-13] MEDS: cefTRIAXone\\ROCEPHIN 2 GM in Sodium Chloride 0.9% 100 ML IVPB SCH ×2 (00:18→23:04)
[2023-09-13 05:02] LABS: #Basophils 0.1 thou/uL (0.0-0.2); #Eosinphils 0.1 thou/uL (0.0-0.7); #Monocytes 1.3 thou/uL (0.11-0.59); %Basophils 0.5 % (0.0-1.0); %Eosinophils 0.6 % (0.0-10.0); %Lymphocytes 21.3 % (21.0-51.0); %Monocytes 10.5 % (0.0-10.0); %Neutrophils 64.1 % (42.0-75.0); Hematocrit 34.2 % (42.0-52.0); Hemoglobin 12.1 g/dL (14.0-18.0); Mean Corpuscular HGB CONC 35.4 g/dL (32.0-36.0); Mean Corpuscular Hemoglobin 30.9 pg (27.0-31.0); Mean Platelet Volume 8.6 fL (7.4-10.4); Platelet Count 300 10x3/uL (130-400); RBC Distribution Width 11.9 % (11.5-14.5); Red Blood Cell (RBC) Count 3.91 mill/uL (4.70-6.10); White Blood Cell (WBC) Count 12.5 10x3/uL (4.8-10.8)
[2023-09-13 05:08] LABS: Mean Corpuscular Volume 87.5 fl (78.0-98.0)
[2023-09-13 05:59] LABS: Anion Gap 14 mmol/L (10-20); BUN (Urea Nitrogen) 8 mg/dL (8.4-25.7); Calc. Creatinine Clearance 142 mL/min (70-130); Calcium 8.6 mg/dL (7.8-10.44); Carbon Dioxide 25 mmol/L (22-29); Chloride 98 mmol/L (98-107); Estimated GFR 110; Glucose 139 mg/dL (70-105); Magnesium 1.8 mg/dL (1.6-2.6); Potassium 3.1 mmol/L (3.5-5.1); Sodium 134 mmol/L (136-145)
[2023-09-13] MEDS: Ipratropium/Albuterol Sulfate 4 GM AER IH SCH ×5 (07:08→21:19)
[2023-09-13] MEDS: guaiFENesin/DM ER PO SCH ×2 (08:48→20:29)
[2023-09-13] MEDS: Benzonatate 100 MG CAP PO SCH ×3 (08:48→20:29)
[2023-09-13] MEDS: Famotidine/PF 20 mg/2ml Vial SLOW IVP SCH ×2 (08:48→20:29)
[2023-09-13] MEDS: Sertraline 100 MG TAB PO SCH (08:48)
[2023-09-13] MEDS: Aspirin Chewable 81 MG TAB PO SCH (08:48)
[2023-09-13] MEDS: glipiZIDE 10 MG TAB PO SCH ×2 (08:49→17:48)
[2023-09-13] MEDS: Carvedilol 6.25 MG TAB PO SCH ×2 (08:49→20:30)
[2023-09-13] MEDS: predniSONE 20 MG TAB PO SCH (08:49)
[2023-09-13] MEDS: metFORMIN 500 MG TAB PO SCH ×2 (08:49→20:29)
[2023-09-13] MEDS: Amlodipine 5 MG TAB PO SCH (08:49)
[2023-09-13] MEDS: Acetaminophen 500 MG TAB PO PRN (08:57)
[2023-09-13] MEDS ORDERED: Potassium Chloride 20 MEQ TAB PO SCH (09:00)
[2023-09-13] MEDS: HYDROcodone/Chlorphen Polis 5 ML UDCUP PO PRN ×2 (10:42→23:05)
[2023-09-13] MEDS: Insulin Regular 300 UNITS/3 ML VIAL SC PRN ×2 (12:07→17:47)
[2023-09-13] MEDS: Sodium Chloride 0.9% 1,000 ML IV SCH ×2 (15:15→20:29)
[2023-09-13] MEDS ORDERED: Simethicone Chewable 80 MG TAB PO PRN (17:58)
[2023-09-13] MEDS: Rosuvastatin 20 MG TAB PO SCH (20:29)
[2023-09-14 05:06] LABS: #Eosinphils 0.1 thou/uL (0.0-0.7); #Monocytes 1.3 thou/uL (0.11-0.59); #Neutrophils 7.5 thou/uL (1.40-6.50); %Basophils 0.3 % (0.0-1.0); %Eosinophils 0.8 % (0.0-10.0); %Lymphocytes 24.2 % (21.0-51.0); %Monocytes 10.2 % (0.0-10.0); %Neutrophils 60.6 % (42.0-75.0); Mean Corpuscular HGB CONC 35.5 g/dL (32.0-36.0); Mean Corpuscular Hemoglobin 31.3 pg (27.0-31.0); Mean Corpuscular Volume 88.3 fl (78.0-98.0); Mean Platelet Volume 8.4 fL (7.4-10.4); Platelet Count 291 10x3/uL (130-400); RBC Distribution Width 11.9 % (11.5-14.5); Red Blood Cell (RBC) Count 3.51 mill/uL (4.70-6.10); White Blood Cell (WBC) Count 12.5 10x3/uL (4.8-10.8)
[2023-09-14 05:37] LABS: ALT (SGPT) 20 U/L (8-55); AST (SGOT) 18 U/L (5-34); Albumin 3.1 g/dL (3.5-5.0); Alkaline Phosphatase 83 U/L (40-110); Anion Gap 11 mmol/L (10-20); BUN (Urea Nitrogen) 8 mg/dL (8.4-25.7); Bilirubin, Total 0.2 mg/dL (0.2-1.2); CRP (Inflammatory) 3.28 mg/dL (= or < 0.5); Calc. Creatinine Clearance 148 mL/min (70-130); Calcium 8.5 mg/dL (7.8-10.44); Carbon Dioxide 26 mmol/L (22-29); Chloride 100 mmol/L (98-107); Estimated GFR 111; Globulin 3.1 g/dL (2.4-3.5); Glucose 183 mg/dL (70-105); Potassium 3.5 mmol/L (3.5-5.1); Protein, Total 6.2 g/dL (6.0-8.3); Sodium 133 mmol/L (136-145)
[2023-09-14] MEDS: Ipratropium/Albuterol Sulfate 4 GM AER IH SCH ×2 (07:09→10:30)
[2023-09-14] MEDS: Famotidine/PF 20 mg/2ml Vial SLOW IVP SCH (08:21)
[2023-09-14] MEDS: Aspirin Chewable 81 MG TAB PO SCH (08:23)
[2023-09-14] MEDS: Carvedilol 6.25 MG TAB PO SCH (08:23)
[2023-09-14] MEDS: glipiZIDE 10 MG TAB PO SCH (08:23)
[2023-09-14] MEDS: Benzonatate 100 MG CAP PO SCH (08:24)
[2023-09-14] MEDS: Amlodipine 5 MG TAB PO SCH (08:24)
[2023-09-14] MEDS: predniSONE 20 MG TAB PO SCH (08:24)
[2023-09-14] MEDS: Sertraline 100 MG TAB PO SCH (08:24)
[2023-09-14] MEDS: metFORMIN 500 MG TAB PO SCH (08:24)
[2023-09-14] MEDS: guaiFENesin/DM ER PO SCH (08:24)
[2023-09-14] MEDS: Acetaminophen 500 MG TAB PO PRN (08:28)
[2023-09-14 08:47] VITALS: BP 157/88; TEMP 97.5
== END 2023-09-14 11:17 | disposition home or self-care (01) | DRG 193 ==
LOC: SUATTDRO 18:23 → ERS 18:23 → 2SW 22:47
PROVIDERS: ADMIT Family Medicine; ATTEND Internal Medicine Critical Care Medicine
DX: J18.9 Pneumonia, unspecified organism (principal); J96.01 Acute respiratory failure with hypoxia; E87.1 Hypo-osmolality and hyponatremia; J06.9 Acute upper respiratory infection, unspecified; I10 Essential (primary) hypertension; E11.9 Type 2 diabetes mellitus without complications; E87.6 Hypokalemia; E83.42 Hypomagnesemia; Z79.899 Other long term (current) drug therapy; Z79.84 Long term (current) use of oral hypoglycemic drugs; Z11.52 Encounter for screening for COVID-19
CPT/HCPCS: 36415; 36416; 71045; 71275; 80048; 80053; 83605; 83735; 83880; 84100; 84145; 84484; 85025; 86140; 87040; 87070; 87205; 87633; 87798; 93005; 94640; 96361; 96365; 96375; J0456; J0696; J1650; J1815; J2930; J3475; J3490; J3535; J7050; J7512; J7620; S0028